=== PATIENT | male | born 1995 | race Two or more races ===

== ENCOUNTER 2023-03-30 16:16 | Emergency (ER) | payer OTHER ==
[~2023-03-30] VITALS: Ht 172.7 cm; Wt 90.9 kg
[2023-03-30 17:51] VITALS: BP 135/90; PULSE 71; RESP 16; TEMP 98.3
== END 2023-03-30 17:55 | disposition home or self-care (01) ==
LOC: EMS 16:18
DX: J68.9 Unspecified respiratory condition due to chemicals, gases, fumes and vapors (principal)
CPT/HCPCS: 71046; 99284